=== PATIENT | female | born 1975 | race Asian ===

== ENCOUNTER 2023-08-26 19:01 | Emergency (ER) | payer OTHER ==
[~2023-08-26] VITALS: Ht 149.9 cm; Wt 50.0 kg
[2023-08-26 19:05] VITALS: TEMP 98.4; O2SAT 99
[2023-08-26] MEDS ORDERED: FAMOTIDINE 20MG TABLET PO SCH (20:00)
[2023-08-26] MEDS ORDERED: PREDNISONE 20MG TABLET PO ONE (20:00)
[2023-08-26] MEDS ORDERED: FAMO20TA8 PO (21:14)
[2023-08-26] MEDS ORDERED: P20 MT (21:14)
[2023-08-26] MEDS ORDERED: DIPH25CA83 PO (21:15)
[2023-08-26 21:34] VITALS: BP 158/68; PULSE 20; RESP 18
== END 2023-08-26 21:35 | disposition home or self-care (01) ==
LOC: ER 19:01
DX: T20.56XA Corrosion of first degree of forehead and cheek, initial encounter (principal); T20.53XA Corrosion of first degree of chin, initial encounter; E03.9 Hypothyroidism, unspecified; Y93.89 Activity, other specified; Y92.89 Other specified places as the place of occurrence of the external cause; Y99.8 Other external cause status
CPT/HCPCS: 99283; J7512